=== PATIENT | male | born 1995 | race Caucasian/White ===

== ENCOUNTER 2019-11-22 15:49 | Emergency (ER) | payer OTHER ==
[~2019-11-22] VITALS: Ht 175.3 cm; Wt 79.4 kg
[2019-11-22 16:01] VITALS: BP_SYST 151
--- NOTE | 2019-11-22 16:01 | NUR ---
Placed in room 01 . Placed on manager cardiac cath, blood pressure machine and pulse oximeter. To gown for exam. Side rails up. Report given to MARY Hyatt
--- NOTE | 2019-11-22 16:05 | NUR ---
# 20 gauge angiocath placed to lac. Use of asceptic technique. Opsite placed over site. Blood return noted. Blood for lab drawn from site. Flushed with 10 cc of normal saline. No evidence of infiltration noted. Patient tolerated well.
[2019-11-22] MEDS ORDERED: NACL 0.9% 1,000 ML IV ONE ×2 (16:06→16:15)
--- NOTE | 2019-11-22 16:08 | NUR ---
Note yohana in [facility] - 11/22/19 at 1620 by JASMEET Placed in room 1 . Placed on cardiac rehab nurse, blood pressure machine and pulse oximeter. To gown for exam. Side rails up. ASSUMED CARE FROM MARY SILVA.
--- NOTE | 2019-11-22 16:15 | NUR ---
DR ARNETT IN TO ASSESS
[2019-11-22 16:33] LABS: BASOPHILS % (AUTO) 0.4 % (0.0-2.0); EOSINOPHILS % (AUTO) 0.2 % (0.0-4.0); HEMATOCRIT 54.6 % (36-54); HEMOGLOBIN 18.6 g/dL (14.0-18.0); LYMPHOCYTES # (AUTO) 1.6 K/uL (1.0-5.5); LYMPHOCYTES % (AUTO) 16.8 % (20.5-51.5); MEAN CORPUSCULAR HEMOGLOBIN 30 pg (27-31); MEAN CORPUSCULAR HGB CONC 34 % (32-36); MEAN CORPUSCULAR VOLUME 87 fL (79.0-98.0); MONOCYTES # (AUTO) 0.6 K/uL (0.0-1.0); MONOCYTES % (AUTO) 6.8 % (1.7-9.3); NEUTROPHILS # (AUTO) 7.1 K/uL (1.8-7.7); NEUTROPHILS % (AUTO) 75.8 % (40.0-70.0); PLATELET COUNT (AUTO) 336 K/uL (130-430); RED BLOOD CELL COUNT(AUTO) 6.26 MIL/uL (4.2-6.2); RED CELL DISTRIBUTION WIDTH 12.9 % (9.0-15.0); WHITE BLOOD COUNT (AUTO) 9.4 K/uL (4.8-10.8)
[2019-11-22 16:36] LABS: CALCIUM 8.9 mg/dL (8.4-11.0); CREATININE 1.25 mg/dL (0.55-1.30); POTASSIUM 3.3 mmol/L (3.5-5.1)
[2019-11-22] MEDS ORDERED: METOPROLOL TARTRATE 5 MG/5 ML VIAL IVP ONE (16:45)
[2019-11-22 16:53] LABS: ALBUMIN 4.7 g/dL (3.4-4.8); TOTAL BILIRUBIN 0.8 mg/dL (0.0-1.0)
[2019-11-22 17:08] LABS: BILIRUBIN,URINE NEGATIVE (NEGATIVE); BLOOD, URINE NEGATIVE (NEGATIVE); CLARITY/URINE CLEAR (CLEAR); GLUCOSE,URINE NEGATIVE (NEGATIVE); KETONES,URINE 2+ (NEGATIVE); LEUKOCYTE ESTERASE ,URINE NEGATIVE (NEGATIVE); NITRITE, URINE NEGATIVE (NEGATIVE); PH,URINE 5.5 (5.0-8.0); PROTEIN URINE NEGATIVE (NEGATIVE); UROBILINOGEN,URINE 0.2 (0.2-1.0)
[2019-11-22 17:13] LABS: COLOR,URINE STRAW (YELLOW)
--- NOTE | 2019-11-22 17:20 | NUR ---
CIRA TO ASSUME CARE. PT ON MONITOR ST @ 105. BP 150/101. STATES HE FEELS BETTER. COMMUNICATES CLEARLY IN FULL COMPLETE SENTECES. SKIN WARM AND DRY. C/O DRY MOUTH/TOLERATING PO WELL. VOIDED 550 ML CLEAR YELLOW URINE
[2019-11-22 17:24] LABS: BARBITURATE, URINE NEGATIVE (NEG <=200); BENZODIAZEPINE, URINE NEGATIVE (NEG <=150); CANNABINOID, URINE POSITIVE (NEG <=50); COCAINE, URINE NEGATIVE (NEG <=150); METHAMPHETAMINES SCREEN,URINE NEGATIVE (NEG <=500); OPIATE, URINE NEGATIVE (NEG <=100); PHENCYCLIDINE SCREEN,URINE NEGATIVE (NEG <=25); UR TRICYCLIC ANTIDEPRESSANTS NEGATIVE (NEG <=300); URINE AMPHETAMINE NEGATIVE (NEG <=500); URINE METHADONE NEGATIVE (NEG <=200); URINE OXYCODONE SCREEN NEGATIVE (NEG <=100); URINE PROPOXYPHENE SCREEN NEGATIVE (NEG <=300)
--- NOTE | 2019-11-22 17:30 | NUR ---
CALM, ALERT, RESP UNLABORED, SKIN WARM AND DRY. COMMUNICATES CLEARLY IN FULL COMPLETE SENTENCES,
[2019-11-22 17:47] VITALS: BP_SYST 151
--- NOTE | 2019-11-22 17:49 | NUR ---
Patient given written and verbal discharge instructions and verbalizes understanding. ER MD discussed with patient the results and treatment provided. Patient in stable condition. ID arm band removed. IV catheter removed intact and dressing applied, no active bleeding. Rx of INDERAL given. Patient educated on pain management and to follow up with PMD. Pain Scale 0/10. Opportunity for questions provided and answered. Medication side effect fact sheet provided.
== END 2019-11-22 17:47 | disposition home or self-care (01) ==
LOC: SED 15:49
DX: R00.2 Palpitations (principal); B37.0 Candidal stomatitis; F12.10 Cannabis abuse, uncomplicated
CPT/HCPCS: 36415; 80053; 80307; 81003; 82150; 82550; 83605; 83690; 84484; 85025; 87040; 93005; 96374; 99285; J3490; J7030